=== PATIENT | male | born 1990 | race Caucasian/White ===

== ENCOUNTER 2024-01-29 18:35 | Emergency (ER) | payer BC ==
[2024-01-29] MEDS: Bacitracin Oint 1 GM U/D Packet TOP ONE (18:45)
[2024-01-29] MEDS: Diphtheria,Pertussis(Acell),Tetanus Vaccine 0.5 ML Syringe IM ONE (18:49)
== END 2024-01-29 19:08 | disposition home or self-care (01) ==
LOC: CC.ED 18:35
DX: S61.210A Laceration without foreign body of right index finger without damage to nail, initial encounter (principal); W26.8XXA Contact with other sharp object(s), not elsewhere classified, initial encounter; Z23 Encounter for immunization
CPT/HCPCS: 12001; 90471; 90715; 99282-25; 99283